=== PATIENT | female | born 1945 | race Caucasian/White ===

== ENCOUNTER 2016-03-27 08:43 | Outpatient (CLI) | payer MEDICARE | END 2016-03-27 08:44 | disposition home or self-care (01) | DX: Z00.00 Encounter for general adult medical examination without abnormal findings (principal); F32.9 Major depressive disorder, single episode, unspecified; E78.2 Mixed hyperlipidemia; I10 Essential (primary) hypertension; Z79.899 Other long term (current) drug therapy ==

== ENCOUNTER 2016-04-11 09:50 | Outpatient (CLI) | payer MEDICARE | END 2016-04-11 09:51 | disposition home or self-care (01) | DX: E03.9 Hypothyroidism, unspecified (principal) ==

== ENCOUNTER 2016-04-23 10:59 | Outpatient (CLI) | payer MEDICARE | END 2016-04-23 11:00 | disposition home or self-care (01) | DX: Z12.31 Encounter for screening mammogram for malignant neoplasm of breast (principal) ==

== ENCOUNTER 2016-04-23 11:01 | Outpatient (CLI) | payer MEDICARE | END 2016-04-23 11:02 | disposition home or self-care (01) | DX: E04.1 Nontoxic single thyroid nodule (principal) ==

== ENCOUNTER 2016-06-13 11:59 | Outpatient (CLI) | payer MEDICARE | END 2016-06-13 12:00 | disposition home or self-care (01) | DX: R06.2 Wheezing (principal); R05 Cough ==

== ENCOUNTER 2017-09-04 09:25 | Outpatient (CLI) | payer MEDICARE ==
[2017-09-04 15:32] LABS: BASOPHILS % (AUTO) 0.8 %; EOSINOPHILS # (AUTO) 0.1 10^3/uL (0.0-0.7); EOSINOPHILS % (AUTO) 3.4 %; HGB - HEMOGLOBIN 15.2 g/dL (12.0-16.0); LYMPHOCYTES # (AUTO) 1.8 10^3/uL (1.5-3.5); LYMPHOCYTES % (AUTO) 42.2 %; MEAN CORPUSCULAR HEMOGLOBIN 30.5 pg (27.0-31.0); MEAN CORPUSCULAR HGB CONC 33.1 g/dL (32.0-36.0); MEAN CORPUSCULAR VOLUME 92.1 fL (81.0-99.0); MEAN PLATELET VOLUME 10.5 fL (7.9-10.8); MONOCYTES # (AUTO) 0.3 10^3/uL (0.0-1.0); MONOCYTES % (AUTO) 7.3 %; NEUTROPHILS # (AUTO) 1.9 10^3/uL (1.5-6.6); NEUTROPHILS % (AUTO) 46.3 %; PLT - PLATELET COUNT 200 10^3/uL (130-450); RED BLOOD COUNT 4.98 10^6/uL (4.20-5.40); RED CELL DISTRIBUTION WIDTH 12.5 % (12.0-15.0); WHITE BLOOD COUNT 4.2 x10^3/uL (4.8-10.8)
[2017-09-04 15:50] LABS: ALBUMIN 3.6 g/dL (3.2-5.5); ALBUMIN/GLOBULIN RATIO 1.1 (1.0-2.2); ALKALINE PHOSPHATASE 65 IU/L (42-121); ALT ALANINE AMINOTRANSFERASE 22 IU/L (10-60); AST ASPARTATE AMINOTRANSFERASE 22 IU/L (10-42); BILIRUBIN,TOTAL 0.8 mg/dL (0.2-1.0); BUN - BLOOD UREA NITROGEN 19 mg/dL (6-20); CALCIUM 9.1 mg/dL (8.5-10.3); CARBON DIOXIDE - CO2 24 mmol/L (21-32); CHLORIDE 106 mmol/L (101-111); CHOL/HDL RATIO 2.3 (<4.4); CHOLESTEROL 150 mg/dL; CREATININE 0.7 mg/dL (0.4-1.0); GFR - MDRD 83 (>89); GLUCOSE 96 mg/dL (70-100); HDL CHOLESTEROL 64 mg/dL; LDL CHOLESTEROL,CALCULATED 62 mg/dL; SODIUM 138 mmol/L (135-145); VLDL CHOLESTEROL 24 mg/dL
[2017-09-04 16:02] LABS: THYROID STIMULATING HORMONE 2.65 uIU/mL (0.34-5.60)
[2017-09-04 16:04] LABS: FREE T4 (FREE THYROXINE) 1.04 ng/dL (0.58-1.64)
[2017-09-05 13:31] LABS: HEPATITIS C ANTIBODY NON-REACTIVE (NON-REACTIVE)
== END 2017-09-04 09:26 | disposition home or self-care (01) ==
LOC: LAB.R 09:25
PROVIDERS: ATTEND Physician Assistant Medical
DX: I10 Essential (primary) hypertension (principal); E78.2 Mixed hyperlipidemia; Z79.899 Other long term (current) drug therapy; R79.89 Other specified abnormal findings of blood chemistry; Z11.8 Encounter for screening for other infectious and parasitic diseases
CPT/HCPCS: 80053; 80061; 82306; 83721; 84439; 84443; 84481; 85025; 86803

== ENCOUNTER 2017-09-26 23:50 | Outpatient (CLI) | payer MEDICARE ==
[2017-09-26 18:54] LABS: BILIRUBIN,URINE NEGATIVE (NEGATIVE); GLUCOSE, URINE (UA) NEGATIVE (NEGATIVE); KETONES,URINE (UA) TRACE mg/dL (NEGATIVE); LEUKOCYTE ESTERASE, URINE MODERATE (NEGATIVE); NITRITE,URINE NEGATIVE (NEGATIVE); OCCULT BLOOD,URINE NEGATIVE (NEGATIVE); PROTEIN,URINE NEGATIVE (NEGATIVE); UROBILINOGEN,URINE 0.2 (NORMAL) E.U./dL (NORMAL)
[2017-09-26 19:17] LABS: CLARITY,URINE CLEAR (CLEAR)
[2017-09-26 19:30] LABS: BACTERIA,URINE Many /HPF (None Seen); RBC,URINE 0-5 /HPF (0-5); SQUAMOUS EPITHELIAL CELL,UR MANY Squamous (<= Few)
== END 2017-09-26 23:51 | disposition home or self-care (01) ==
LOC: LAB.R 23:50
PROVIDERS: ATTEND Physician Assistant Medical
DX: R31.9 Hematuria, unspecified (principal); R82.99 Other abnormal findings in urine
CPT/HCPCS: 81001; 81003; 87086

== ENCOUNTER 2017-10-20 09:19 | Outpatient (CLI) | payer MEDICARE ==
--- NOTE | 2017-10-20 13:58 | Ultrasound Report ---
Reason: THYROID NODULE/ POST MENOPAUSAL Procedure Date: 10/20/2017 Accession Number: [id number] / [id number] Procedure: US - Head or Neck Soft Tissue CPT Code: FULL RESULT: EXAM: THYROID ULTRASOUND EXAM DATE: 10/20/2017 10:45 AM. CLINICAL HISTORY: Follow-up thyroid nodule COMPARISON: Thyroid ultrasound 04/23/2016. TECHNIQUE: Real time sonographic imaging of the thyroid was performed by the general agent. Multiple human resources hr representative static images were saved for review. FINDINGS: THYROID GLAND: Right Lobe: 4.4 x 1.8 x 1.4 cm, volume 6 cc. Normal background echotexture. Right Lobe Nodules: None. Left Lobe: 4.1 x 1.3 x 1.3 cm, volume 4 cc. Normal background echotexture. Left Lobe Nodules: Lower lobe solid hypoechoic nodule. Smooth margins wider than tall. No calcifications. 8 x 6 x 5 mm. Stable finding. Isthmus: 0.3 cm AP. Isthmic Nodules: None. LYMPH NODES: No adenopathy demonstrated in the central or lateral compartment. IMPRESSION: Subcentimeter left thyroid nodule. No change. Management recommendations are based on 2015 [employer] Management Guidelines for Adult Patients with Thyroid Nodules and Differentiated Thyroid Cancer. RADIA
== END 2017-10-20 09:20 | disposition home or self-care (01) ==
LOC: DI 09:19
PROVIDERS: ATTEND Physician Assistant Medical
DX: E04.1 Nontoxic single thyroid nodule (principal); Z78.0 Asymptomatic menopausal state
CPT/HCPCS: 76536

== ENCOUNTER 2017-10-23 08:25 | Outpatient (CLI) | payer MEDICARE ==
--- NOTE | 2017-10-23 16:35 | DEXA Report ---
Reason: POST MENOPAUSAL Procedure Date: 10/23/2017 Accession Number: [id number] / [id number] Procedure: DEX - Dexa Spine and/or Hip CPT Code: FULL RESULT: EXAM: Dexa Spine and/or Hip DATE: 10/23/2017 8:53 AM CLINICAL HISTORY: POST MENOPAUSAL TECHNIQUE: Dual energy x-ray absorptiometry (DXA) was performed on a [employer]. Regions measured are the AP Spine, femoral neck, and if needed forearm. COMPARISON: None. In accordance with the International Society for Clinical Densitometry (ISCD) guidelines, data from previous exams may be reanalyzed using current recommendations and techniques. This is done to allow a more accurate basis for comparison with the current study. FINDINGS: The data for the lumbar spine is as follows: BMD (g/cm/cm) T-SCORE Z-SCORE REGION L1 1.049 -0.7 0.3 L2 1.154 -0.4 0.6 L3 1.181 -0.2 0.8 L4 1.110 -0.7 0.2 TOTAL 1.125 -0.5 0.5 NOTE: All evaluable vertebrae are used for classification The data for the hip is as follows: BMD (g/cm/cm) T-SCORE Z-SCORE REGION Neck 0.747 -2.1 -0.8 TOTAL 0.823 -1.5 -0.5 NOTE: The femoral neck or total proximal femur, whichever is lowest, is used for classification. IMPRESSION: THE WHO CLASSIFICATION BASED ON THE INTERNATIONAL REFERENCE STANDARD IS OSTEOPENIA. THE FRACTURE RISK IS INCREASED. RECOMMENDATION: Patients with diagnosis of osteoporosis or osteopenia should have regular bone mineral density assessment. For those eligible for Medicare, routine testing is allowed once every 2 years. Testing frequency can be increased for patients who have rapidly progressing disease or for those who are receiving medical therapy to restore bone mass. COMMENT: World Health Organization (WHO) definitions for osteoporosis and osteopenia: NORMAL BMD: T-score at -1.0 or higher, fracture risk is low OSTEOPENIA BMD: T-score between -1.0 and -2.5, fracture risk is increased. OSTEOPOROSIS BMD: T-score at -2.5 or lower, fracture risk is high. National Osteoporosis Foundation recommends: 1. Obtain adequate dietary calcium (at least 1200 mg per day) and vitamin D (400-800 international units per day). 2. Participate, as appropriate, in regular weightbearing and muscle-strengthening exercise. 3. Avoid tobacco use and reduce alcohol and caffeine intake. 4. For more detailed information see the website at www.NOF.org.
== END 2017-10-23 08:26 | disposition home or self-care (01) ==
LOC: DI 08:25
PROVIDERS: ATTEND Physician Assistant Medical
DX: Z78.0 Asymptomatic menopausal state (principal); M85.88 Other specified disorders of bone density and structure, other site
CPT/HCPCS: 77080

== ENCOUNTER 2018-01-15 08:43 | Outpatient (CLI) | payer MEDICARE ==
--- NOTE | 2018-01-17 08:49 | Mammography Report ---
Reason: SCREENING MAMMO Procedure Date: 01/15/2018 Accession Number: [id number] / [id number] Procedure: RUBEN - Screening Mammo w/Luiz CPT Code: FULL RESULT: EXAM: Screening Mammo w/Luiz DATE: 01/15/2018 9:47 AM CLINICAL HISTORY: 72-year-old female with history of early menses and family history of breast cancer in the mother above the age of 60 presents for screening. TECHNIQUE: Bilateral CC and MLO views were obtained. COMPARISON: 04/23/2016, 02/26/2014, 02/17/2013, 11/27/2011. FINDINGS: The breasts demonstrate scattered fibroglandular densities bilaterally. Typically benign vascular calcifications are identified bilaterally No suspicious masses, clustered microcalcifications, or regions of architectural distortion are identified. IMPRESSION: Negative examination RECOMMENDATION: Routine annual screening unless otherwise clinically indicated. BIRADS CATEGORY 1: Negative STANDARD QUALIFYING STATEMENTS: 1. This examination was not reviewed with the aid of Computer-Aided Detection (CAD). 2. A negative or benign imaging report should not delay biopsy if clinically suspicious findings are present. Consider surgical consultation if warranted. More than 5% of cancers are not identified by imaging. 3. Dense breasts may obscure an underlying neoplasm. 4. This examination was reviewed with the aid of 3D breast imaging (tomosynthesis).
== END 2018-01-15 08:44 | disposition home or self-care (01) ==
LOC: DI 08:43
DX: Z12.31 Encounter for screening mammogram for malignant neoplasm of breast (principal); Z80.3 Family history of malignant neoplasm of breast
CPT/HCPCS: 77063; 77067

== ENCOUNTER 2018-01-21 12:04 | Outpatient (CLI) | payer MEDICARE ==
--- NOTE | 2018-01-21 14:21 | XRAY Report ---
Reason: NEURALGIA AND NEURITIS, UNSPECIFIED Procedure Date: 01/21/2018 Accession Number: [id number] / [id number] Procedure: XR - Lumbar Spine Complete CPT Code: FULL RESULT: EXAM: LUMBOSACRAL SPINE RADIOGRAPHY EXAM DATE: 01/21/2018 12:25 PM. CLINICAL HISTORY: Neuralgia and neuritis, unspecified. COMPARISONS: None. TECHNIQUE: 3 views. FINDINGS: Alignment: There are 4 mm of grade 1 anterolisthesis of L3 on L4 due to questionable pars defect. 6 mm of anterolisthesis of L4 on L5 are also seen, suspect pars defect. Bones: Five [id number] lumbar vertebral bodies are present. No fractures or bone lesions. Disks: While there is mild multilevel loss of disk space height, these are relatively preserved compared to the facets. Facets: Moderate facet arthropathy at L3 and L4 with severe facet arthropathy at L5. Sacroiliac Joints: Unremarkable. Soft Tissues: Normal. The visualized bowel gas pattern is normal. IMPRESSION: Lower lumbar spine facet arthropathy and anterolisthesis presumably due to multilevel pars defects. RADIA
--- NOTE | 2018-01-21 15:15 | XRAY Report ---
Reason: NEURALGIA AND NEURITIS, UNSPECIFIED Procedure Date: 01/21/2018 Accession Number: [id number] / [id number] Procedure: XR - Thoracic Spine 2 View CPT Code: FULL RESULT: EXAM: THORACIC SPINE RADIOGRAPHY EXAM DATE: 01/21/2018 12:25 PM. CLINICAL HISTORY: Neuralgia and neuritis, unspecified. COMPARISON: CHEST 2 VIEW PA/LAT 06/13/2016 12:02 PM. TECHNIQUE: 2 views. FINDINGS: Alignment: Normal. No spondylolisthesis or scoliosis. Bones: No fractures or bone lesions. Disks: Normal. Disk heights are maintained. Soft Tissues: Normal. The visualized lungs and cardiomediastinal silhouette are normal. IMPRESSION: Normal thoracic spine radiography. RADIA
--- NOTE | 2018-01-21 17:21 | CARDIAC PROCEDURE NOTE ---
DATE OF SERVICE: 01/21/2018 Physician: Susan Dale MD, [facility] INDICATIONS: Diaphoresis, hypertension, hyperlipidemia. CARDIAC RISK FACTORS: Postmenopausal, elevated cholesterol. SUMMARY: After signing informed consent, the patient performed an exercise stress testing on a Hiram protocol along with Echo imaging. RESTING HEART RATE: 64. PEAK HEART RATE: 130 (86% predicted maximum heart rate for age). RESTING BLOOD PRESSURE: 130/80. PEAK BLOOD PRESSURE: 172/70. The patient exercised for 6 minutes and 3 seconds on a Hiram protocol treadmill. She achieved a peak heart rate of 130 (86% PMHR), 7 METS. The patient developed moderate shortness of breath. She had no chest pain. O2 saturation was 95% on room air at peak. RESTING EKG: Normal sinus rhythm, rare PVCs, early RS transition, RSR' in V1 and V2. EKG AT PEAK: [address] depressions in V4 through V6. SUMMARY: 1. Fair exercise tolerance. 2. Abnormal resting EKG. 3. Borderline abnormal ST segment changes by EKG criteria, at an adequate level of stress. 4. Echo images reported separately. TD: 01/21/2018 17:00 JOSÉ MANUEL
== END 2018-01-21 12:05 | disposition home or self-care (01) ==
LOC: DI 12:04
PROVIDERS: ATTEND Physician Assistant Medical
DX: R61 Generalized hyperhidrosis (principal); I10 Essential (primary) hypertension; E78.2 Mixed hyperlipidemia; R94.31 Abnormal electrocardiogram [ECG] [EKG]; M47.9 Spondylosis, unspecified; M51.36 Other intervertebral disc degeneration, lumbar region; M43.16 Spondylolisthesis, lumbar region
CPT/HCPCS: 72070; 72110; 93351

== ENCOUNTER 2018-09-11 10:15 | Outpatient (CLI) | payer MEDICARE ==
[2018-09-11 10:34] LABS: BASOPHILS # (AUTO) 0.1 10^3/uL (0.0-0.1); BASOPHILS % (AUTO) 1.3 %; EOSINOPHILS # (AUTO) 0.3 10^3/uL (0.0-0.7); EOSINOPHILS % (AUTO) 6.2 %; HGB - HEMOGLOBIN 14.6 g/dL (12.0-16.0); LYMPHOCYTES # (AUTO) 2.5 10^3/uL (1.5-3.5); LYMPHOCYTES % (AUTO) 45.5 %; MEAN CORPUSCULAR HEMOGLOBIN 30.1 pg (27.0-31.0); MEAN CORPUSCULAR HGB CONC 32.6 g/dL (32.0-36.0); MEAN CORPUSCULAR VOLUME 92.4 fL (81.0-99.0); MONOCYTES # (AUTO) 0.4 10^3/uL (0.0-1.0); MONOCYTES % (AUTO) 6.9 %; NEUTROPHILS # (AUTO) 2.2 10^3/uL (1.5-6.6); NEUTROPHILS % (AUTO) 39.9 %; PLT - PLATELET COUNT 215 10^3/uL (130-450); RED BLOOD COUNT 4.85 10^6/uL (4.20-5.40); RED CELL DISTRIBUTION WIDTH 12.9 % (12.0-15.0); WHITE BLOOD COUNT 5.5 x10^3/uL (4.8-10.8)
[2018-09-11 11:01] LABS: ALBUMIN 3.9 g/dL (3.2-5.5); ALBUMIN/GLOBULIN RATIO 1.2 (1.0-2.2); ALKALINE PHOSPHATASE 84 IU/L (42-121); ALT ALANINE AMINOTRANSFERASE 19 IU/L (10-60); AST ASPARTATE AMINOTRANSFERASE 20 IU/L (10-42); BILIRUBIN,TOTAL 0.5 mg/dL (0.2-1.0); BUN - BLOOD UREA NITROGEN 18 mg/dL (6-20); CALCIUM 9.1 mg/dL (8.5-10.3); CARBON DIOXIDE - CO2 27 mmol/L (21-32); CHLORIDE 106 mmol/L (101-111); CHOL/HDL RATIO 2.9 (<4.4); CHOLESTEROL 175 mg/dL; CREATININE 0.8 mg/dL (0.4-1.0); GFR - MDRD 71 (>89); GLUCOSE 95 mg/dL (70-100); HDL CHOLESTEROL 60 mg/dL; LDL CHOLESTEROL,CALCULATED 91 mg/dL; LDL/HDL RATIO 1.5 (<4.4); SODIUM 142 mmol/L (135-145); TOTAL PROTEIN 7.1 g/dL (6.7-8.2); VLDL CHOLESTEROL 24 mg/dL
[2018-09-11 11:04] LABS: DIFFERENTIAL COMMENT MANUAL=AUTO DIFF; PLATELET ESTIMATE, MANUAL NORMAL (130-450,000) (NORMAL); PLATELET MORPHOLOGY NORMAL APPEARANCE (NORMAL); RBC MORPHOLOGY (MULTIPLE) NORMAL APPEARANCE (NORMAL)
== END 2018-09-11 10:16 | disposition home or self-care (01) ==
LOC: LAB 10:15
PROVIDERS: ATTEND Nurse Practitioner
DX: Z79.899 Other long term (current) drug therapy (principal); R94.6 Abnormal results of thyroid function studies; I10 Essential (primary) hypertension; E78.2 Mixed hyperlipidemia
CPT/HCPCS: 36415; 80053; 80061; 83721; 84443; 85025

== ENCOUNTER 2018-11-20 14:42 | Outpatient (CLI) | payer MEDICARE | END 2018-11-20 23:59 | disposition home or self-care (01) | LOC: LAB.R 14:42 | PROVIDERS: ATTEND Family Medicine | DX: B00.9 Herpesviral infection, unspecified (principal) | CPT/HCPCS: 87252 ==

== ENCOUNTER 2018-12-23 14:41 | Outpatient (CLI) | payer MEDICARE ==
[~2018-12-23 14:41] MED LIST: GADOBUTROL 10 MMOL/10 ML VIAL ONE
[2018-12-23] MEDS: GADOBUTROL 10 MMOL/10 ML VIAL IVP ONE (16:30)
--- NOTE | 2018-12-23 17:49 | MRI Report ---
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 INDICATION: 73-year-old female. 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 TECHNIQUE: Imaging of the brain and orbits has been performed. The following sequences were obtained. Brain: 1. T1 sagittal and fat-saturated T2 coronal. 2. Axial FLAIR, T2* GRE and DWI. 3. 10 cc IV Gadavist. Postcontrast T1 spin echo axial. Orbits: 1. Thin slice, fat-saturated T2 coronal. 2. Postcontrast, thin slice, fat-saturated T1 axial and coronal. COMPARISON: None. FINDINGS: Orbits: The optic globes have a normal appearance. There is no evidence of retinal or choroidal detachment. No intraocular mass lesion is demonstrated. The optic nerves are unremarkable. In particular, no abnormal T2 hyperintensity or enhancement is identified in either optic nerve to suggest active optic neuritis. The extraocular muscles and lacrimal glands appear symmetric in size. No intraorbital mass lesion is demonstrated. The superior ophthalmic veins are patent and are normal in size. There appears to be symmetric enhancement of the cavernous sinuses. The optic chiasm is normal and noncompressed. No abnormality is identified in the distribution of the optic tracts, optic radiations or visual cortex. Brain: There is generalized prominence of the cerebral cortical sulci and cerebellar folia, considered within normal limits for stated age. There is mild third/lateral ventriculomegaly that appears to be ex vacuo in nature. No hydrocephalus. A mild amount of white matter disease is identified in the supratentorial brain, manifested as focal T2 hyperintensities that are scattered throughout the periventricular, deep and subcortical white matter bilaterally. A frontoparietal distribution predominates. The signal intensity of the cortex and white matter is otherwise unremarkable. There appear to be flow voids for the main intracranial arteries. No abnormal diffusion restriction is demonstrated. No evidence of acute or chronic hemorrhage on the T2* GRE sequence. No enhancing intra-axial or extra-axial mass lesion is identified. No pathologic meningeal or cranial nerve enhancement is demonstrated. There appears to be normal intra- vascular contrast enhancement in the dural venous sinuses and deep venous structures. This effectively excludes the possibility of dural venous sinus thrombosis. Mild mucosal thickening is identified scattered throughout the ethmoid air cells. The paranasal sinuses are otherwise essentially clear. No significant mastoid or middle ear effusion is demonstrated. IMPRESSION: 1. Unremarkable MRI examination of the orbits. In particular, no potential etiology for optic atrophy has been identified. 2. A mild amount of white matter disease is identified in the supratentorial brain, likely representing chronic microangiopathy. 3. Imaging of the brain is otherwise unremarkable. In particular, there is no evidence of an intracranial space-occupying mass lesion and no findings concerning for possible intracranial hypertension.
== END 2018-12-23 14:42 | disposition home or self-care (01) ==
LOC: DI 14:41
PROVIDERS: ATTEND Ophthalmology
DX: R90.82 White matter disease, unspecified (principal); H47.291 Other optic atrophy, right eye
CPT/HCPCS: 70543; A9585

== ENCOUNTER 2019-10-13 10:32 | Outpatient (CLI) | payer MEDICARE ==
[2019-10-13 11:06] LABS: BASOPHILS % (AUTO) 0.7 %; EOSINOPHILS # (AUTO) 0.2 10^3/uL (0.0-0.7); EOSINOPHILS % (AUTO) 2.6 %; HGB - HEMOGLOBIN 15.5 g/dL (12.0-16.0); LYMPHOCYTES # (AUTO) 2.1 10^3/uL (1.5-3.5); LYMPHOCYTES % (AUTO) 36.3 %; MEAN CORPUSCULAR HEMOGLOBIN 30.8 pg (27.0-31.0); MEAN CORPUSCULAR HGB CONC 33.2 g/dL (32.0-36.0); MEAN CORPUSCULAR VOLUME 92.8 fL (81.0-99.0); MEAN PLATELET VOLUME 10.9 fL (7.9-10.8); MONOCYTES # (AUTO) 0.4 10^3/uL (0.0-1.0); MONOCYTES % (AUTO) 6.1 %; NEUTROPHILS # (AUTO) 3.1 10^3/uL (1.5-6.6); NEUTROPHILS % (AUTO) 54.1 %; PLT - PLATELET COUNT 212 10^3/uL (130-450); RED BLOOD COUNT 5.03 10^6/uL (4.20-5.40); RED CELL DISTRIBUTION WIDTH 12.3 % (12.0-15.0); WHITE BLOOD COUNT 5.7 x10^3/uL (4.8-10.8)
[2019-10-13 11:26] LABS: ALBUMIN/GLOBULIN RATIO 1.3 (1.0-2.2); ALKALINE PHOSPHATASE 103 IU/L (42-121); ALT ALANINE AMINOTRANSFERASE 27 IU/L (10-60); AST ASPARTATE AMINOTRANSFERASE 26 IU/L (10-42); BILIRUBIN,TOTAL 0.9 mg/dL (0.2-1.0); BUN - BLOOD UREA NITROGEN 13 mg/dL (6-20); CARBON DIOXIDE - CO2 27 mmol/L (21-32); CHLORIDE 104 mmol/L (101-111); CHOL/HDL RATIO 2.8 (<4.4); CHOLESTEROL 152 mg/dL; CREATININE 0.8 mg/dL (0.4-1.0); GLUCOSE 103 mg/dL (70-100); HDL CHOLESTEROL 55 mg/dL; LDL CHOLESTEROL,CALCULATED 75 mg/dL; LDL/HDL RATIO 1.4 (<4.4); SODIUM 137 mmol/L (135-145); VLDL CHOLESTEROL 22 mg/dL
== END 2019-10-13 10:33 | disposition home or self-care (01) ==
LOC: LAB 10:32
PROVIDERS: ATTEND Nurse Practitioner
DX: I10 Essential (primary) hypertension (principal); K21.9 Gastro-esophageal reflux disease without esophagitis; E78.2 Mixed hyperlipidemia; R94.6 Abnormal results of thyroid function studies
CPT/HCPCS: 36415; 80053; 80061; 83721; 84443; 85025

== ENCOUNTER 2020-08-03 14:50 | Outpatient (CLI) | payer MEDICARE ==
[2020-08-03 15:37] LABS: CREATININE 0.8 mg/dL (0.4-1.0); GFR - MDRD 70 (>89)
[2020-08-03 15:38] LABS: CRP - C-REACTIVE PROTEIN < 1.0 mg/dL (0-1.0)
[2020-08-03 15:47] LABS: BASOPHILS # (AUTO) 0.1 10^3/uL (0.0-0.1); BASOPHILS % (AUTO) 0.7 %; EOSINOPHILS # (AUTO) 0.4 10^3/uL (0.0-0.7); EOSINOPHILS % (AUTO) 5.1 %; HCT - HEMATOCRIT 44.1 % (37.0-47.0); HGB - HEMOGLOBIN 14.6 g/dL (12.0-16.0); LYMPHOCYTES % (AUTO) 43.1 %; MEAN CORPUSCULAR HEMOGLOBIN 29.9 pg (27.0-31.0); MEAN CORPUSCULAR HGB CONC 33.1 g/dL (32.0-36.0); MEAN CORPUSCULAR VOLUME 90.4 fL (81.0-99.0); MEAN PLATELET VOLUME 11.3 fL (7.9-10.8); MONOCYTES # (AUTO) 0.5 10^3/uL (0.0-1.0); MONOCYTES % (AUTO) 7.1 %; NEUTROPHILS % (AUTO) 43.7 %; PLT - PLATELET COUNT 239 10^3/uL (130-450); RED BLOOD COUNT 4.88 10^6/uL (4.20-5.40); RED CELL DISTRIBUTION WIDTH 12.4 % (12.0-15.0); WHITE BLOOD COUNT 6.9 x10^3/uL (4.8-10.8)
[2020-08-05 21:37] LABS: THYROID PEROXIDASE ANTIBODIES 9 IU/mL (<9)
== END 2020-08-03 14:51 | disposition home or self-care (01) ==
LOC: LAB 14:50
PROVIDERS: ATTEND Ophthalmology
DX: H05.241 Constant exophthalmos, right eye (principal)
CPT/HCPCS: 36415; 81599; 82565; 84445; 85025; 85651; 86140; 86376; 86800

== ENCOUNTER 2020-09-09 14:15 | Outpatient (CLI) | payer MEDICARE ==
--- NOTE | 2020-09-12 13:19 | Mammography Report ---
BILATERAL DIGITAL SCREENING MAMMOGRAM 3D/2D: 09/09/2020 CLINICAL: Routine screening. Comparison is made to exams dated: 01/15/2018 mammogram, 04/23/2016 mammogram, and 02/26/2014 mammogram - [facility]. There are scattered fibroglandular elements in both breasts. No significant masses, calcifications, or other findings are seen in either breast. There has been no significant interval change. IMPRESSION: NEGATIVE There is no mammographic evidence of malignancy. A 1 year screening mammogram is recommended. This exam was interpreted at Station ID: [id number]. NOTE: For mammograms, a report in lay terms will be sent to the patient. Approximately 15% of breast malignancies will not be visualized mammographically. In the management of a palpable breast mass, a negative mammogram must not discourage biopsy of a clinically suspicious lesion. Electronically Signed By: Miranda ely/johannerad:09/09/2020 16:31:16 ACR BI-RADS Category 1: Negative 3341F PARENCHYMAL PATTERN: (A) - The breast(s) demonstrate(s) scattered fibroglandular densities. BI-RADS CATEGORY: (1) - 1 RECOMMENDATION: (ANNUAL) - Recommend routine annual screening mammography. [id number] 1 year screening LATERALITY: (B)
== END 2020-09-09 14:16 | disposition home or self-care (01) ==
LOC: DI 14:15
DX: Z12.31 Encounter for screening mammogram for malignant neoplasm of breast (principal)

== ENCOUNTER 2021-01-26 13:08 | Outpatient (CLI) | payer MEDICARE ==
--- NOTE | 2021-01-26 16:52 | DEXA Report ---
PROCEDURE: Dexa Spine and/or Hip INDICATIONS: POST MENOPAUSAL TECHNIQUE: Dual energy x-ray absorptiometry (DXA) was performed on a [employer]. Regions measur ed are the AP Spine, femoral neck, and if needed forearm. COMPARISON: 10/23/2017. FINDINGS: Lumbar Spine: Bone Mineral Density 1.095 g/cm/cm,T score -0.7. There is interval 2.7% decrease in total lumbar s pine bone mineral density. Left Hip: Bone Mineral Density 0.779 g/cm/cm,T score -1.8. There is interval 5.3% decrease in total left hip b one mineral density. Left Femoral Neck: Bone Mineral Density 0.720 g/cm/cm, T score -2.3. (T score greater or equal to -1.0: NORMAL) (T score from -1.1 to -2.4: OSTEOPENIA) (T score less than or equal to -2.5 to: OSTEOPOROSIS) Impression: Osteopenia. Patients with diagnosis of osteoporosis or osteopenia should have regular bone mineral density assess ment. For those eligible for Medicare, routine testing is allowed once every 2 years. Testing frequ ency can be increased for patients who have rapidly progressing disease or for those who are receivin g medical therapy to restore bone mass. Reviewed by: Matteo Cohen MD on 01/26/2021 4:50 PM PST Approved by: Matteo Cohen MD on 01/26/2021 4:50 PM PST Station ID: [id number]
== END 2021-01-26 13:09 | disposition home or self-care (01) ==
LOC: DI 13:08
PROVIDERS: ATTEND Nurse Practitioner
DX: Z78.0 Asymptomatic menopausal state (principal); M85.89 Other specified disorders of bone density and structure, multiple sites

== ENCOUNTER 2021-08-16 09:33 | Outpatient (CLI) | payer MEDICARE ==
[2021-08-16 11:42] LABS: BILIRUBIN,URINE NEGATIVE (NEGATIVE); GLUCOSE, URINE (UA) NEGATIVE (NEGATIVE); KETONES,URINE (UA) TRACE mg/dL (NEGATIVE); LEUKOCYTE ESTERASE, URINE MODERATE (NEGATIVE); NITRITE,URINE NEGATIVE (NEGATIVE); OCCULT BLOOD,URINE NEGATIVE (NEGATIVE); PROTEIN,URINE NEGATIVE (NEGATIVE); UROBILINOGEN,URINE 0.2 (NORMAL) E.U./dL (NORMAL)
[2021-08-16 11:58] LABS: BASOPHILS # (AUTO) 0.1 10^3/uL (0.0-0.1); BASOPHILS % (AUTO) 1.1 %; EOSINOPHILS # (AUTO) 0.3 10^3/uL (0.0-0.7); EOSINOPHILS % (AUTO) 5.9 %; HCT - HEMATOCRIT 46.4 % (37.0-47.0); HGB - HEMOGLOBIN 15.2 g/dL (12.0-16.0); LYMPHOCYTES # (AUTO) 1.9 10^3/uL (1.5-3.5); LYMPHOCYTES % (AUTO) 40.7 %; MEAN CORPUSCULAR HGB CONC 32.8 g/dL (32.0-36.0); MEAN CORPUSCULAR VOLUME 91.5 fL (81.0-99.0); MEAN PLATELET VOLUME 11.5 fL (7.9-10.8); MONOCYTES # (AUTO) 0.4 10^3/uL (0.0-1.0); MONOCYTES % (AUTO) 7.9 %; NEUTROPHILS % (AUTO) 44.2 %; PLT - PLATELET COUNT 207 10^3/uL (130-450); RED BLOOD COUNT 5.07 10^6/uL (4.20-5.40); RED CELL DISTRIBUTION WIDTH 12.2 % (12.0-15.0); WHITE BLOOD COUNT 4.6 x10^3/uL (4.8-10.8)
[2021-08-16 12:15] LABS: BACTERIA,URINE Moderate /HPF (None Seen); CLARITY,URINE SL. CLOUDY (CLEAR); RBC,URINE 0-5 /HPF (0-5); SQUAMOUS EPITHELIAL CELL,UR MANY Squamous (<= Few)
[2021-08-16 12:50] LABS: ALBUMIN 4.1 g/dL (3.2-5.5); ALBUMIN/GLOBULIN RATIO 1.4 (1.0-2.2); ALKALINE PHOSPHATASE 75 IU/L (42-121); ALT ALANINE AMINOTRANSFERASE 17 IU/L (10-60); AST ASPARTATE AMINOTRANSFERASE 20 IU/L (10-42); BILIRUBIN,TOTAL 1.2 mg/dL (0.2-1.0); BUN - BLOOD UREA NITROGEN 22 mg/dL (6-20); CALCIUM 9.2 mg/dL (8.5-10.3); CARBON DIOXIDE - CO2 26 mmol/L (21-32); CHLORIDE 104 mmol/L (101-111); CHOL/HDL RATIO 2.5 (<4.4); CHOLESTEROL 183 mg/dL; GFR - MDRD 54 (>89); GLUCOSE 95 mg/dL (70-100); HDL CHOLESTEROL 72 mg/dL; LDL CHOLESTEROL,CALCULATED 93 mg/dL; LDL/HDL RATIO 1.3 (<4.4); POTASSIUM 4.2 mmol/L (3.5-5.0); SODIUM 139 mmol/L (135-145); TRIGLYCERIDES 90 mg/dL; VLDL CHOLESTEROL 18 mg/dL
[2021-08-16 12:55] LABS: THYROID STIMULATING HORMONE 2.3 uIU/mL (0.34-5.60)
[2021-08-16 12:57] LABS: FREE T4 (FREE THYROXINE) 1.02 ng/dL (0.58-1.64)
== END 2021-08-16 09:34 | disposition home or self-care (01) ==
LOC: LAB.N 09:33
PROVIDERS: ATTEND Nurse Practitioner
DX: I10 Essential (primary) hypertension (principal); E78.2 Mixed hyperlipidemia; R94.6 Abnormal results of thyroid function studies
CPT/HCPCS: 36415; 80053; 80061; 81001; 83721; 84439; 84443; 85025; 87086

== ENCOUNTER 2022-01-29 10:26 | Outpatient (CLI) | payer MEDICARE ==
[2022-01-29 12:57] LABS: CALCIUM 8.8 mg/dL (8.5-10.3); CREATININE 0.7 mg/dL (0.4-1.0); POTASSIUM 3.9 mmol/L (3.5-5.0)
== END 2022-01-29 10:27 | disposition home or self-care (01) ==
LOC: LAB.N 10:26
PROVIDERS: ATTEND Nurse Practitioner
DX: I10 Essential (primary) hypertension (principal)
CPT/HCPCS: 36415; 80048

== ENCOUNTER 2023-09-26 10:30 | Outpatient (CLI) | payer MEDICARE ==
[2023-09-26 10:46] LABS: BASOPHILS # (AUTO) 0.1 10^3/uL (0.0-0.1); BASOPHILS % (AUTO) 0.9 %; EOSINOPHILS # (AUTO) 0.2 10^3/uL (0.0-0.7); HCT - HEMATOCRIT 43.5 % (37.0-47.0); HGB - HEMOGLOBIN 14.5 g/dL (12.0-16.0); LYMPHOCYTES # (AUTO) 2.1 10^3/uL (1.5-3.5); LYMPHOCYTES % (AUTO) 39.6 %; MEAN CORPUSCULAR HEMOGLOBIN 30.3 pg (27.0-31.0); MEAN CORPUSCULAR HGB CONC 33.3 g/dL (32.0-36.0); MEAN CORPUSCULAR VOLUME 90.8 fL (81.0-99.0); MEAN PLATELET VOLUME 10.6 fL (7.9-10.8); MONOCYTES # (AUTO) 0.4 10^3/uL (0.0-1.0); MONOCYTES % (AUTO) 7.2 %; NEUTROPHILS # (AUTO) 2.6 10^3/uL (1.5-6.6); NEUTROPHILS % (AUTO) 49.1 %; PLT - PLATELET COUNT 209 10^3/uL (130-450); RED BLOOD COUNT 4.79 10^6/uL (4.20-5.40); RED CELL DISTRIBUTION WIDTH 12.4 % (12.0-15.0); WHITE BLOOD COUNT 5.3 x10^3/uL (4.8-10.8)
[2023-09-26 11:07] LABS: ALBUMIN 4.1 g/dL (3.2-5.5); ALBUMIN/GLOBULIN RATIO 1.7 (1.0-2.2); ALKALINE PHOSPHATASE 87 IU/L (42-121); ALT ALANINE AMINOTRANSFERASE 18 IU/L (10-60); AST ASPARTATE AMINOTRANSFERASE 18 IU/L (10-42); BILIRUBIN,TOTAL 0.8 mg/dL (0.2-1.0); BUN - BLOOD UREA NITROGEN 18 mg/dL (6-20); CALCIUM 9.5 mg/dL (8.5-10.3); CARBON DIOXIDE - CO2 29 mmol/L (21-32); CHLORIDE 104 mmol/L (101-111); CHOL/HDL RATIO 2.3 (<4.4); CHOLESTEROL 151 mg/dL; CREATININE 0.8 mg/dL (0.6-1.3); GFR - MDRD 70 (>89); GLUCOSE 88 mg/dL (74-104); HDL CHOLESTEROL 66 mg/dL; LDL CHOLESTEROL,CALCULATED 68 mg/dL; POTASSIUM 3.9 mmol/L (3.5-4.5); SODIUM 137 mmol/L (135-145); TOTAL PROTEIN 6.5 g/dL (6.4-8.9); TRIGLYCERIDES 84 mg/dL; VLDL CHOLESTEROL 17 mg/dL
[2023-09-26 11:22] LABS: THYROID STIMULATING HORMONE 2.05 uIU/mL (0.34-5.60)
== END 2023-09-26 10:31 | disposition home or self-care (01) ==
LOC: LAB 10:30
PROVIDERS: ATTEND Physician Assistant
DX: I10 Essential (primary) hypertension (principal); E78.2 Mixed hyperlipidemia
CPT/HCPCS: 36415; 80053; 80061; 83721; 84443; 85025

== ENCOUNTER 2023-10-10 10:58 | Outpatient (CLI) | payer MEDICARE ==
--- NOTE | 2023-10-18 15:33 | Mammography Report ---
BILATERAL DIGITAL SCREENING MAMMOGRAM 3D/2D: 10/10/2023 CLINICAL: Routine screening. Comparison is made to exams dated: 07/17/2023 mammogram - [facility], 09/09/2020 mammogram, 018 mammogram, 04/23/2016 mammogram, and 02/26/2014 mammogram - [facility]. Both breasts are heterogeneously dense, which may obscure small masses (category c / 51-75% glandular tissue). No significant masses, calcifications, or other findings are seen in either breast. There has been no significant interval change. IMPRESSION: NEGATIVE There is no mammographic evidence of malignancy. A 1 year screening mammogram is recommended. Future imaging is recommended as follows: 07/17/2024 screening mammogram. Based on the Tyrer Cuzick model (a risk assessment model) the patient's lifetime risk is 7.4% and her 10 year risk is 0.0%. According to the ACR, ACS, and NCCN guidelines, an annual breast MRI exam jc g with mammogram is recommended if the patient's lifetime risk is 20% or greater. This exam was interpreted at Station ID: [id number]. NOTE: For mammograms, a report in lay terms will be sent to the patient. Approximately 15% of breast malignancies will not be visualized mammographically. In the management of a palpable breast mass, a negative mammogram must not discourage biopsy of a clinically suspicious lesion. Electronically Signed By: Marcia Wilhelm M.D., Ph.D. lele/javed:10/17/2023 09:45:30 letter sent: No_Letter ACR BI-RADS Category 1: Negative 3341F PARENCHYMAL PATTERN: (D) - The breast(s) demonstrate(s) heterogeneously dense fibroglandular mag styles. BI-RADS CATEGORY: (1) - 1 RECOMMENDATION: (ANNUAL) - Recommend routine annual screening mammography. [id number] 1 year screening LATERALITY: (B)
== END 2023-10-10 10:59 | disposition home or self-care (01) ==
LOC: DI 10:58
DX: Z12.31 Encounter for screening mammogram for malignant neoplasm of breast (principal); R92.333 Mammographic heterogeneous density, bilateral breasts

== ENCOUNTER 2023-10-24 12:27 | Outpatient (CLI) | payer MEDICARE ==
--- NOTE | 2023-10-24 15:10 | DEXA Report ---
PROCEDURE: Dexa Spine and/or Hip INDICATIONS: OSTEOPENIA TECHNIQUE: Dual energy x-ray absorptiometry (DXA) was performed on a [employer] System. Regions measur ed are the AP Spine, femoral neck, and if needed forearm. COMPARISON: 01/26/2021 FINDINGS: Lumbar Spine: Bone Mineral Density: 1.135 g/cm/cm,T score: -0.4. Since the most recent prior study, there has been a statistically significant increase in bone mineral density by 3.7 percent. Left Femoral Neck: Bone Mineral Density: 0.676 g/cm/cm, T score: -2.6. Left Hip: Bone Mineral Density: 0.733 g/cm/cm,T score: -2.2. Since the most recent prior study, there has been a statistically significant decrease in bone mineral density by 5.9 percent. FRAX risk factors: None given. (T score greater or equal to -1.0: NORMAL) (T score from -1.1 to -2.4: OSTEOPENIA) (T score less than or equal to -2.5 to: OSTEOPOROSIS) Impression: By WHO criteria, this patient has osteoporosis. Interval statistical increase in bone mineral density of the lumbar spine. Interval statistical decre ase in bone mineral density of the hip. Patients with diagnosis of osteoporosis or osteopenia should have regular bone mineral density assess ment. For those eligible for Medicare, routine testing is allowed once every 2 years. Testing frequ ency can be increased for patients who have rapidly progressing disease or for those who are receivin g medical therapy to restore bone mass. Reviewed by: Man Delarosa MD on 10/24/2023 3:08 PM PDT Approved by: Man Delarosa MD on 10/24/2023 3:08 PM PDT Station ID: [id number]
== END 2023-10-24 12:28 | disposition home or self-care (01) ==
LOC: DI 12:27
PROVIDERS: ATTEND Physician Assistant
DX: M81.0 Age-related osteoporosis without current pathological fracture (principal)

== ENCOUNTER 2023-11-14 15:06 | Outpatient (CLI) | payer MEDICARE | END 2023-11-14 15:07 | disposition home or self-care (01) | LOC: LAB 15:06 | PROVIDERS: ATTEND Physician Assistant | DX: M81.0 Age-related osteoporosis without current pathological fracture (principal) | CPT/HCPCS: 36415; 82306 ==